=== PATIENT | female | born 1995 | race Caucasian/White ===

== ENCOUNTER → 2019-09-28 15:30 | Outpatient (CLI) | payer OTHER | END | disposition home or self-care (01) | LOC: LAB 15:30 | DX: J11.1 Influenza due to unidentified influenza virus with other respiratory manifestations (principal); J15.7 Pneumonia due to Mycoplasma pneumoniae; A49.3 Mycoplasma infection, unspecified site ==

== ENCOUNTER → 2019-09-29 | Outpatient (CLI) | payer OTHER | END | disposition home or self-care (01) | LOC: RAD 12:27 | DX: J11.89 Influenza due to unidentified influenza virus with other manifestations (principal) ==